=== PATIENT | female | born 1980 | race Caucasian/White ===

== ENCOUNTER 2017-08-26 12:20 | Emergency (ER) | payer MEDICARE, MEDICAID ==
[2017-08-26 12:48] VITALS: BP 119/67
--- NOTE | 2017-08-26 14:02 | ER Document Report ---
HPI - HPI Patient complains to provider of: cut toe Onset: Other Pain Level: 0 Context: 37 yo CP/MR was staying with her sister and cut plantar left 5th toe somehow. Here with folks. Tetanus in last 2 years. Associated Symptoms: None Exacerbated by: Movement Relieved by: Denies Similar symptoms previously: No Recently seen / treated by doctor: No - ROS ROS below otherwise negative: Yes Systems Reviewed and Negative: Yes All other systems reviewed and negative Past Medical History - General Information source: Parent - Social History Smoking Status: Never Smoker Frequency of alcohol use: None Drug Abuse: None Lives with: Family Family History: Reviewed & Not Pertinent Psychiatric Medical History: Reports: Other - CP/MR Surgical Hx: Negative Vertical Provider Document - CONSTITUTIONAL Agree With Documented VS: Yes Exam Limitations: Language Barrier, Physical Impairment - INFECTION CONTROL TRAVEL OUTSIDE OF THE [place] IN LAST 30 DAYS: No - HEENT HEENT: Atraumatic - NECK Neck: Supple - MUSCULOSKELETAL/EXTREMETIES Musculoskeletal/Extremeties: MAEW, Tender - see below - NEURO Level of Consciousness: Awake Motor/Sensory: No Motor Deficit, No Sensory Deficit - DERM Integumentary: Warm, Dry, Laceration - 8mm partial thickness cut plantar surface base 5th left toe Course - Vital Signs Vital signs: Temp Pulse Resp BP Pulse Ox 95 18 119/67 95 08/26/17 12:46 08/26/17 12:46 08/26/17 12:46 08/26/17 12:46 Discharge - Discharge Clinical Impression: Cut of foot Condition: Good Disposition: HOME, SELF-CARE Instructions: Antibiotic Ointment Protection ([facility]), Foot Laceration ([facility]), Soap Cleansing ([facility]) Additional Instructions: bacitracin daily after washing with soap and water gently dressing daily watch for signs of infection, red streak, pus, warm, fever Referrals: BALDO LIN PA [Primary Care Provider] - Follow up as needed
== END 2017-08-26 14:40 | disposition home or self-care (01) ==
LOC: ER 12:20
DX: S91.115A Laceration without foreign body of left lesser toe(s) without damage to nail, initial encounter (principal); W45.8XXA Other foreign body or object entering through skin, initial encounter
CPT/HCPCS: 99282